=== PATIENT | female | born 1945 | race Caucasian/White ===

== ENCOUNTER → 2017-12-07 | Outpatient (CLI) | payer MEDICARE ==
--- NOTE | 2017-12-07 18:09 | Diagnostic Imaging Report ---
EXAMINATION: PA and lateral Chest at 11:56 a.m. INDICATION: Cough. COMPARISON: There are no prior studies available for comparison. FINDINGS: The heart size is within normal limits. The lungs are clear. There is no evidence for failure, pneumonia, or for pleural effusion. The mediastinum is not widened. The osseous structures are intact. There are surgical clips in the right upper quadrant consistent with prior cholecystectomy. IMPRESSION: There is no evidence for an acute cardiopulmonary abnormality. Dictated by: Dictated on workstation # [id number]
== END ==
LOC: RAD 11:18
PROVIDERS: ATTEND Internal Medicine
DX: R05 Cough (principal)
CPT/HCPCS: 71046

== ENCOUNTER 2021-02-19 10:15 | Outpatient (RCR) | payer MEDICARE | END 2021-02-21 | disposition home or self-care (01) | LOC: CR 10:15 | PROVIDERS: ATTEND Internal Medicine Interventional Cardiology | DX: Z95.5 Presence of coronary angioplasty implant and graft (principal) | CPT/HCPCS: 93798 ==

== ENCOUNTER 2021-03-03 10:18 | Outpatient (RCR) | payer MEDICARE | END 2021-05-23 | disposition home or self-care (01) | LOC: CR 10:18 | PROVIDERS: ATTEND Internal Medicine Interventional Cardiology | DX: Z95.5 Presence of coronary angioplasty implant and graft (principal) | CPT/HCPCS: 93798 ==